=== PATIENT | female | born 1935 | race Caucasian/White ===

== ENCOUNTER → 2021-03-03 | Outpatient (CLI) | payer MEDICARE, OTHER | LOC: M WUC 11:52 | PROVIDERS: ATTEND Nurse Practitioner Family | DX: R06.09 Other forms of dyspnea (principal); J84.10 Pulmonary fibrosis, unspecified ==

== ENCOUNTER 2021-05-26 13:40 | Inpatient (IN) | payer MEDICARE, OTHER ==
[~2021-05-26] VITALS: Ht 167.6 cm; Wt 63.0 kg
[2021-05-26 14:18] LABS: VENOUS BASE EXCESS 0.8 (-2.0-2.0); VENOUS HCO3 26.4 MEQ/L (23.0-27.0); VENOUS O2 SATURATION 43.9 % (60.0-80.0); VENOUS PARTIAL PRESSURE CO2 45.2 mmHg (38.0-50.0); VENOUS PARTIAL PRESSURE O2 25.1 mmHg (30.0-50.0); VENOUS PH 7.384 UNITS (7.330-7.430); VENOUS STANDARD HCO3 23.4 MEQ/L; VENOUS TOTAL CO2 27.8 MEQ/L (24.0-28.0)
[2021-05-26 14:25] VITALS: O2SAT 90
[2021-05-26 14:25] LABS: HEMATOCRIT 54.6 % (36.0-47.0); HEMOGLOBIN 18.1 g/dl (12.0-15.5); MEAN CORPUSCULAR HEMOGLOBIN 30.6 pg (27.0-33.0); MEAN CORPUSCULAR HGB CONC 33.2 g/dl (32.0-36.5); MEAN CORPUSCULAR VOLUME 92.4 fl (80.0-96.0); PLATELET COUNT, AUTOMATED 475 10^3/uL (150-450); RED BLOOD COUNT 5.91 10^6/uL (4.00-5.40)
[2021-05-26] MEDS ORDERED: cefTRIAXone SOD 2 GM in D5W MINI-BAG PLUS 50 ML IV ONE (14:25)
[2021-05-26] MEDS ORDERED: AZITHROMYCIN INJ 500 MG, VIAL MATE ADAPTER 1 EACH in NS 250 ML IV ONE (14:25)
[2021-05-26 14:32] LABS: WHITE BLOOD COUNT 30.8 10^3/uL (4.0-10.0)
[2021-05-26] MEDS ORDERED: NS 1,000 ML IV SCH ×2 (14:45→16:25)
[2021-05-26 14:48] LABS: ATYPICAL LYMPH 3 % (0-5); GIANT PLATELETS 1+; LYMPHOCYTES 2 % (16-44); METAMYELOCYTES 1 % (0-0); MONOCYTES 6 % (0-5); NEUTROPHILS 62 % (28-66)
[2021-05-26 14:49] LABS: PLATELET ESTIMATE INCREASED (NORMAL)
[2021-05-26 15:00] LABS: ALBUMIN 3.5 GM/DL (3.2-5.2); ALT/SGPT 34 U/L (12-78); BILIRUBIN,DIRECT 0.3 MG/DL (0.0-0.2); BILIRUBIN,TOTAL 0.9 MG/DL (0.2-1.0); BLOOD UREA NITROGEN 22 MG/DL (7-18); CALCIUM LEVEL 10.4 MG/DL (8.8-10.2); CARBON DIOXIDE LEVEL 30 MEQ/L (21-32); CHLORIDE LEVEL 101 MEQ/L (98-107); CREATININE FOR GFR 0.86 MG/DL (0.55-1.30); GLOMERULAR FILTRATION RATE > 60.0 (>32); GLUCOSE, FASTING 164 MG/DL (70-100); NT-PRO BNP 8395 PG/ML (<450); POTASSIUM SERUM 3.9 MEQ/L (3.5-5.1); SODIUM LEVEL 138 MEQ/L (136-145); THYROID STIMULATING HORMONE 0.492 uIU/ML (0.358-3.740); TOTAL PROTEIN 7.9 GM/DL (6.4-8.2)
[2021-05-26] MEDS ORDERED: ISOVUE-370 76% 100ML VIAL As Ordered ONE (15:39)
[2021-05-26] MEDS ORDERED: MOM 30ML SUSPENSION UDC PO PRN (16:20)
[2021-05-26] MEDS ORDERED: ACETAMINOPHEN TAB 650MG DOSE (2X325MG) PO PRN (16:20)
[2021-05-26] MEDS ORDERED: MAALOX 30 ML SUSP *UDC PO PRN (16:20)
[2021-05-26] MEDS ORDERED: VANCOMYCIN HCL 0 MG in IV FLUID PLACE HOLDER 1 EA IV SCH (16:25)
[2021-05-26] MEDS ORDERED: NS IV ONE (16:25)
[2021-05-26] MEDS ORDERED: PRED20TA PO (16:46)
[2021-05-26] MEDS ORDERED: METO1TAB7 PO (16:46)
[2021-05-26] MEDS ORDERED: ROSU5TAB5 PO (16:46)
[2021-05-26] MEDS ORDERED: DILT90TA PO (16:46)
[2021-05-26] MEDS ORDERED: HOME MED LIST COMPLETE! XX SCH (16:50)
[2021-05-26] MEDS ORDERED: VANCOMYCIN HCL 1,000 MG, VIAL MATE ADAPTER 1 EACH in NS 250 ML IV SCH (17:30)
[2021-05-26] MEDS ORDERED: LORazepam 2 MG/ML VIAL IV PRN (19:00)
[2021-05-26] MEDS ORDERED: PIPERACILLIN/TAZOBACTAM SOD 3.375 GM in D5W MINI-BAG PLUS 50 ML IV SCH (19:00)
[2021-05-26] MEDS ORDERED: VANCOMYCIN HCL 750 MG, VIAL MATE ADAPTER 1 EACH in NS 250 ML IV ONE (20:00)
[2021-05-26] MEDS ORDERED: ROSUVASTATIN 10 MG TAB (CRESTOR) PO SCH (21:00)
[2021-05-26] MEDS ORDERED: HEPARIN SOD (PORCINE) 5000UNITS/ML 1ML VIAL/SYRINGE SC SCH (21:00)
[2021-05-26] MEDS ORDERED: VANCOMYCIN HCL 500 MG in D5W MINI-BAG PLUS 100 ML IV ONE (21:00)
[2021-05-26] MEDS ORDERED: SCOPOLAMINE 1MG TRANSDERMAL PATCH TOP PRN (22:20)
[2021-05-26 22:30] VITALS: BP 142/88
[2021-05-26] MEDS: DOCUSATE SODIUM 100MG CAPSULE PO SCH (23:33)
[2021-05-26] MEDS: guaiFENesin ER 600 MG TAB PO SCH (23:33)
[2021-05-26] MEDS: MORPHINE 4 MG/ML 1ML VIAL/SYRINGE IV PRN (23:34)
[2021-05-27] MEDS: MORPHINE 4 MG/ML 1ML VIAL/SYRINGE IV PRN ×3 (05:49→18:41)
[2021-05-27] MEDS ORDERED: VANCOMYCIN HCL 500 MG in D5W MINI-BAG PLUS 100 ML IV SCH (08:00)
[2021-05-27] MEDS ORDERED: DOXYCYCLINE HYCLATE 100 MG in D5W MINI-BAG PLUS 100 ML IV SCH (09:00)
[2021-05-27] MEDS ORDERED: PIPERACILLIN/TAZOBACTAM SOD 4.5 GM in D5W MINI-BAG PLUS 50 ML IV SCH (09:00)
[2021-05-27] MEDS ORDERED: METOPROLOL SUCC (TopROL XL) 50MG **XL** TAB PO SCH (09:00)
[2021-05-27] MEDS: DOCUSATE SODIUM 100MG CAPSULE PO SCH ×2 (09:00→20:07)
[2021-05-27] MEDS: guaiFENesin ER 600 MG TAB PO SCH ×2 (09:19→20:07)
[2021-05-27] MEDS ORDERED: LORazepam 2 MG TAB PO PRN (21:50)
[2021-05-28] MEDS: guaiFENesin ER 600 MG TAB PO SCH (09:00)
[2021-05-28] MEDS: DOCUSATE SODIUM 100MG CAPSULE PO SCH (09:00)
[2021-05-28] MEDS: MORPHINE 10MG/0.5ML ORAL CONCENTRATE SOLUTION U/D SL PRN ×2 (09:40→12:41)
[2021-05-28] MEDS: MORPHINE 4 MG/ML 1ML VIAL/SYRINGE IV PRN ×3 (13:58→22:53)
[2021-05-29] MEDS: MORPHINE 4 MG/ML 1ML VIAL/SYRINGE IV PRN (02:12)
== END 2021-05-29 06:58 | disposition expired | DRG 871 ==
LOC: M ED 13:40 → EDBD 13:40 → M ED INP 17:00 → M MSPAV 22:45
PROVIDERS: ADMIT Internal Medicine; ATTEND Internal Medicine
DX: A41.9 Sepsis, unspecified organism (principal); J96.01 Acute respiratory failure with hypoxia; J12.3 Human metapneumovirus pneumonia; E87.2 Acidosis; I10 Essential (primary) hypertension; E78.5 Hyperlipidemia, unspecified; R65.20 Severe sepsis without septic shock; G30.9 Alzheimer's disease, unspecified; Z66 Do not resuscitate; Z51.5 Encounter for palliative care; E86.0 Dehydration; F02.80 Dementia in other diseases classified elsewhere, unspecified severity, without behavioral disturbance, psychotic disturbance, mood disturbance, and anxiety; Z79.899 Other long term (current) drug therapy; Z96.612 Presence of left artificial shoulder joint